=== PATIENT | male | born 1990 | race Caucasian/White ===

== ENCOUNTER → 2017-05-13 | Outpatient (CLI) | payer OTHER | LOC: KOH-I 11:44 | DX: L40.0 Psoriasis vulgaris (principal); J43.9 Emphysema, unspecified | CPT/HCPCS: 71020 ==

== ENCOUNTER 2021-08-11 16:52 | Emergency (ER) | payer OTHER ==
[~2021-08-11 16:52] MED LIST: BACTRIM DS TAB1 EACH PO; CLEOCIN HCL300 MG PO; DOXYCYCLINE MO100 MG PO; IBU800 MG PO; ULTRAM50 MG PO
[2021-08-11 19:51] LABS: HEMOGLOBIN 17.1 gm/dl (14.0-17.5); RED BLOOD COUNT 5.48 M/UL (4.20-5.50); WHITE BLOOD COUNT 6.1 K/UL (4.5-11.0)
[2021-08-11 20:12] LABS: BUN/CREATININE RATIO 12 (0-10)
[2021-08-13] MEDS ORDERED: PROAIR DIGIHAL90 MCG INH (14:05)
[2021-08-13] MEDS ORDERED: MEN'S MULTIVIT1 EACH PO (17:03)
[2021-08-13] MEDS ORDERED: STELARA90 MG/1 ML INJ (17:07)
== END 2021-08-12 01:15 | disposition home or self-care (01) ==
LOC: ER1 16:52
PROVIDERS: Physician Assistant
DX: U07.1 COVID-19 (principal); E86.0 Dehydration; D69.6 Thrombocytopenia, unspecified
CPT/HCPCS: 80053; 83735; 85025; 99283; J7030

== ENCOUNTER 2021-08-13 11:51 | Inpatient (IN) | payer OTHER ==
[~2021-08-13] VITALS: Ht 177.8 cm; Wt 108.4 kg
[2021-08-13 13:05] LABS: HEMOGLOBIN 16.7 gm/dl (14.0-17.5); RED BLOOD COUNT 5.38 M/UL (4.20-5.50); WHITE BLOOD COUNT 6.8 K/UL (4.5-11.0)
[2021-08-13 13:27] LABS: BUN/CREATININE RATIO 13 (0-10)
[2021-08-13] MEDS ORDERED: PROAIR DIGIHAL90 MCG INH (14:05)
[2021-08-13] MEDS ORDERED: MEN'S MULTIVIT1 EACH PO (17:03)
[2021-08-13] MEDS ORDERED: STELARA90 MG/1 ML INJ (17:07)
[2021-08-14 05:58] LABS: RED BLOOD COUNT 4.88 M/UL (4.20-5.50)
[2021-08-14 06:31] LABS: BUN/CREATININE RATIO 15 (0-10)
--- NOTE | 2021-08-15 01:15 | NUR ---
08/14/2021 @ [facility]. 21:45 - mechanical engineering technologist notified this RN of patient low O2 sat of 81%. RN assessed patient, encouraged patient to do breathing exercises. Discussed patient condition with RT Alexandra, decision was made to try high flow nasal cannula. 08/14/2021 @ [facility]. 21:55 - High flow nasal cannula applied to patient at 12L. Patient O2 sat remaining less than 90%. RT Alexandra notified MD Hinton, obtained order for Airvo. 08/14/2021 @ 22:10 - Airvo applied to patient on settings of 40L at 62%. Patient O2 sat improved to 91-95%. Call light and personal items in reach. Will continue to monitor patient.
[2021-08-15 05:36] LABS: HEMOGLOBIN 14.1 gm/dl (14.0-17.5); RED BLOOD COUNT 4.51 M/UL (4.20-5.50)
[2021-08-15 05:40] LABS: WHITE BLOOD COUNT 6.8 K/UL (4.5-11.0)
[2021-08-15 05:58] LABS: BUN/CREATININE RATIO 22 (0-10)
[2021-08-16 06:56] LABS: HEMOGLOBIN 13.7 gm/dl (14.0-17.5); RED BLOOD COUNT 4.43 M/UL (4.20-5.50)
[2021-08-16 07:03] LABS: WHITE BLOOD COUNT 8.8 K/UL (4.5-11.0)
[2021-08-16 07:21] LABS: BUN/CREATININE RATIO 21 (0-10)
[2021-08-17 06:30] LABS: HEMOGLOBIN 12.9 gm/dl (14.0-17.5); RED BLOOD COUNT 4.32 M/UL (4.20-5.50); WHITE BLOOD COUNT 10.4 K/UL (4.5-11.0)
[2021-08-17 07:03] LABS: BUN/CREATININE RATIO 22 (0-10)
[2021-08-18 06:37] LABS: HEMOGLOBIN 13.7 gm/dl (14.0-17.5); RED BLOOD COUNT 4.46 M/UL (4.20-5.50); WHITE BLOOD COUNT 12.5 K/UL (4.5-11.0)
[2021-08-18 06:55] LABS: BUN/CREATININE RATIO 22 (0-10)
[2021-08-19 07:27] LABS: BUN/CREATININE RATIO 22 (0-10)
[2021-08-19] MEDS ORDERED: MEDROL DOSEPAK 24 MG PO (10:09)
[2021-08-19] MEDS ORDERED: PROAIR HFA8.5 GM INH (10:09)
== END 2021-08-19 11:24 | disposition home or self-care (01) | DRG 871 ==
LOC: ER1 11:51 → MED SURG 4 16:20 → CDU 16:20 → MED SURG 4 19:40
PROVIDERS: Internal Medicine; Nurse Practitioner; Physician Assistant Medical; ADMIT Emergency Medicine
PROC: 8E0ZXY6 Isolation (ICD-10-PCS; principal; 2021-08-13)
PROC: 3E0333Z Introduction of Anti-inflammatory into Peripheral Vein, Percutaneous Approach (ICD-10-PCS; 2021-08-13)
PROC: XW033E5 Introduction of Remdesivir Anti-infective into Peripheral Vein, Percutaneous Approach, New Technology Group 5 (ICD-10-PCS; 2021-08-13)
PROC: XW033E6 Introduction of Etesevimab Monoclonal Antibody into Peripheral Vein, Percutaneous Approach, New Technology Group 6 (ICD-10-PCS; 2021-08-13)
PROC: XW033F6 Introduction of Bamlanivimab Monoclonal Antibody into Peripheral Vein, Percutaneous Approach, New Technology Group 6 (ICD-10-PCS; 2021-08-13)
PROC: 5A0945A Assistance with Respiratory Ventilation, 24-96 Consecutive Hours, High Flow/Velocity Cannula (ICD-10-PCS; 2021-08-15)
DX: A41.89 Other specified sepsis (principal); U07.1 COVID-19; J12.82 Pneumonia due to coronavirus disease 2019; J80 Acute respiratory distress syndrome; D84.9 Immunodeficiency, unspecified; N17.9 Acute kidney failure, unspecified; J90 Pleural effusion, not elsewhere classified; R65.20 Severe sepsis without septic shock; R74.01 Elevation of levels of liver transaminase levels; D72.828 Other elevated white blood cell count; E16.2 Hypoglycemia, unspecified; E66.9 Obesity, unspecified; F41.9 Anxiety disorder, unspecified; L40.9 Psoriasis, unspecified; E86.1 Hypovolemia; Z68.33 Body mass index [BMI] 33.0-33.9, adult; Z83.6 Family history of other diseases of the respiratory system; Z23 Encounter for immunization
CPT/HCPCS: 36415; 36600; 71045; 80048; 80053; 81001; 82803; 83735; 85025; 85027; 85379; 86140; 93005; 94640; 94664; 94760; 96374; 99285; J0696; J1100; J1650; J2405; J7030; M0245

== ENCOUNTER → 2021-11-27 | Outpatient (CLI) | payer OTHER ==
[~2021-11-27] MED LIST changes: +MEDROL DOSEPAK 24 MG PO; +MEN'S MULTIVIT1 EACH PO; +PROAIR DIGIHAL90 MCG INH; +PROAIR HFA8.5 GM INH; +STELARA90 MG/1 ML INJ
== END ==
LOC: KOH-I 10:42
DX: J43.9 Emphysema, unspecified (principal)
CPT/HCPCS: 71046